=== PATIENT | female | born 1955 | race Caucasian/White ===

== ENCOUNTER 2021-09-03 11:20 | Emergency (ER) | payer MEDICARE, OTHER ==
[~2021-09-03] VITALS: Ht 162.6 cm; Wt 77.1 kg
[~2021-09-03 11:20] MED LIST: ACETAMINOPHEN500 MG PO; ALLOPURINOL100 MG PO; ASPIRIN325 MG PO; CEFPROZIL500 MG PO; CELECOXIB200 MG PO; CO Q-10100 MG PO; FISH OIL 1,0001 EAC8 PO; FOLIC ACID1 MG PO; METFORMIN HCL500 M2 PO; OXYCODONE HCL5 MG PO; SENNA LAX8.6 MG PO; VENLAFAXINE H37.5 MG PO; VENLAFAXINE HCL75 MG PO; VITAMIN B COMP1 EAC1 PO; ZESTRIL20 MG PO
--- OUTSIDE RECORDS SUMMARY | 2021-09-03 11:22 | XMS ---
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 [place] has no Care Guidelines for this patient. E.D. VISIT COUNT (12 MO.) 1 [facility] T[facility] NOTE: Visits indicate total known visits. 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
[2021-09-03] MEDS ORDERED: BACTRIM DS TAB1 EACH PO (12:27)
== END 2021-09-03 12:42 | disposition home or self-care (01) ==
LOC: ED 11:20
DX: Z48.00 Encounter for change or removal of nonsurgical wound dressing (principal); E78.00 Pure hypercholesterolemia, unspecified; I10 Essential (primary) hypertension; M10.9 Gout, unspecified; E11.9 Type 2 diabetes mellitus without complications; Z88.5 Allergy status to narcotic agent; Z79.899 Other long term (current) drug therapy; Z79.82 Long term (current) use of aspirin; Z79.84 Long term (current) use of oral hypoglycemic drugs
CPT/HCPCS: 99282